=== PATIENT | female | born 1990 | race Caucasian/White ===

== ENCOUNTER 2019-08-08 18:04 | Emergency (ER) | payer BC ==
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
[2019-08-08] MEDS ORDERED: Ketorolac *IM* INJ* 60 MG/2 ML VIAL IM ONE (19:16)
[2019-08-08] MEDS ORDERED: Diazepam TAB(*) 5 MG PO ONE (19:17)
[2019-08-08 20:33] VITALS: BP 120/73
== END 2019-08-08 20:20 | disposition home or self-care (01) ==
LOC: ED 18:04
DX: S76.012A Strain of muscle, fascia and tendon of left hip, initial encounter (principal); M62.838 Other muscle spasm; V43.52XA Car driver injured in collision with other type car in traffic accident, initial encounter; Y92.410 Unspecified street and highway as the place of occurrence of the external cause; Z88.1 Allergy status to other antibiotic agents
CPT/HCPCS: 96372; 99282; A9270-GY; J1885